=== PATIENT | male | born 1995 | race Caucasian/White ===

== ENCOUNTER → 2021-05-19 | Outpatient (REF) ==
--- NOTE | 2021-05-19 14:57 | Diagnostic Imaging Report ---
INDICATION: History of cardiomyopathy. Abnormal EKG. COMPARISON: None. FINDINGS: Frontal and lateral views of the chest demonstrate normal heart size and pulmonary vascularity. The lungs are clear. There are no signs of infiltrate, pleural effusions or pneumothoraces. The visualized osseous structures show no acute abnormalities. Left-sided AICD is noted. IMPRESSION: 1. No acute process. No signs of infiltrates, effusions or pneumothoraces. Dictated by: Dictated on workstation # [id number]
== END ==
LOC: OCC 14:36
PROVIDERS: ATTEND Nurse Practitioner Family
DX: R94.31 Abnormal electrocardiogram [ECG] [EKG] (principal); Z86.79 Personal history of other diseases of the circulatory system
CPT/HCPCS: 71046